=== PATIENT | female | born 1950 | race Caucasian/White ===

== ENCOUNTER 2017-01-18 15:14 | Emergency (ER) | payer MEDICARE, OTHER ==
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
[2017-01-18 16:57] VITALS: BP 141/57
--- NOTE | 2017-01-21 13:16 | CR ---
EXAM DATE: 01/18/17 PATIENT'S AGE: 66 Patient: SMOOTH CALDERON Facility: [place], [place] Site . Site : [id number] Study: XRay Extremity great toe [id number]/30/2017 3:52:57 PM Ordering Physician: Doctor Ramsey Final Report: Indication: Pain and bruising Technique: Three views of the left forefoot Comparison: None available Findings: Bones: Hypertrophic changes in the distal 1st phalanx, likely sequela of old trauma. An apparent small lucency at the base of the distal 1st phalanx on one view could be projectional. No dislocation. Joint spaces: Mild degenerative changes in the 1st MTP joint. Soft tissues: Unremarkable. Impression: An apparent small lucency at the base of the distal 1st phalanx on one view could be projectional. Correlate for focal tenderness and if indicated, followup. Dictated by Isidro Leblanc MD @ 01/18/2017 4:14:26 PM Dictated by: Isidro Leblanc MD @ 01/18/2017 16:14:33 (Electronic Signature) Report Signed by Proxy. FRAN
== END 2017-01-18 16:58 | disposition home or self-care (01) ==
LOC: MW.ED 15:14
DX: S92.415A Nondisplaced fracture of proximal phalanx of left great toe, initial encounter for closed fracture (principal); I10 Essential (primary) hypertension; Z88.0 Allergy status to penicillin; Z88.2 Allergy status to sulfonamides; W01.0XXA Fall on same level from slipping, tripping and stumbling without subsequent striking against object, initial encounter
CPT/HCPCS: 73660-26-TA; 73660-TA; 99282; 99283

== ENCOUNTER 2021-07-31 10:58 | Day surgery (SDC) | payer MEDICARE, OTHER ==
[~2021-07-31 10:58] MED LIST: Lactated Ringers 1,000 ML IV SCH
[2021-07-31] MEDS ORDERED: Propofol 200 MG/20 ML SDV ONE (13:21)
[2021-07-31] MEDS ORDERED: Lidocaine 2% 5 ML SDV ONE (13:27)
[2021-07-31] MEDS ORDERED: Lactated Ringers 1,000 ML IV SCH (13:45)
[2021-07-31 14:12] VITALS: BP 149/69; PULSE 88
== END 2021-07-31 14:20 | disposition home or self-care (01) ==
LOC: MW.SDS 10:58
PROVIDERS: ATTEND Surgery
DX: Z12.11 Encounter for screening for malignant neoplasm of colon (principal); D12.2 Benign neoplasm of ascending colon; E11.9 Type 2 diabetes mellitus without complications; K21.9 Gastro-esophageal reflux disease without esophagitis; I10 Essential (primary) hypertension; Z80.0 Family history of malignant neoplasm of digestive organs; Z88.8 Allergy status to other drugs, medicaments and biological substances; Z88.0 Allergy status to penicillin; Z88.2 Allergy status to sulfonamides; Z79.899 Other long term (current) drug therapy; Z98.890 Other specified postprocedural states; Z79.84 Long term (current) use of oral hypoglycemic drugs
CPT/HCPCS: 00812; 82947; 88305; 99100; J2704; J7120